=== PATIENT | male | born 1965 | race Caucasian/White ===

== ENCOUNTER 2022-06-28 03:48 | Observation (INO) | payer OTHER ==
[2022-06-28] VITALS (7 sets, daily range): BP systolic 153–199; BP diastolic 72–135
[~2022-06-28] VITALS: Ht 185.4 cm; Wt 143.8 kg
[2022-06-28 04:07] LABS: BASO # 0.1 10*3/uL (0.0-0.1); BASO % 0.5 % (0.0-1.0); EOS # 0.5 10*3/uL (0.0-0.4); EOS % 4.2 % (1.0-4.0); HEMATOCRIT 46.6 % (42.0-52.0); LYMPH # 2.2 10*3/uL (1.3-4.4); LYMPH % 18.4 % (27.0-41.0); MEAN CELL VOLUME 83.2 fl (80.0-94.0); MEAN CORPUSCULAR HGB 27.9 pg (27.0-31.0); MEAN CORPUSCULAR HGB CONC 33.5 g/dl (33.0-37.0); MONO # 0.7 10*3/uL (0.1-1.0); MONO % 6.2 % (3.0-9.0); NEUT # 8.3 10*3/uL (2.3-7.9); PLATELET COUNT AUTOMATED 225 10*3/uL (130-400); RED CELL DISTRI WIDTH 13.4 % (0-14.5); WHITE BLOOD COUNT 11.9 10*3/uL (4.8-10.8)
[2022-06-28 04:18] LABS: ACT PARTIAL THROMBO TIME 26.5 SECONDS (20.0-32.1); INTERNATIONAL NORM RATIO 0.9 (2.0-3.5)
[2022-06-28 04:25] LABS: BUN 18 mg/dl (7-24); CHLORIDE 109 mmol/L (98-107); CREATININE 0.94 mg/dL (0.70-1.30); POTASSIUM 4.4 mmol/L (3.5-5.1); SGOT/AST 14 IU/L (3-35); SGPT/ALT 28 U/L (12-78); SODIUM 139 mmol/L (136-145)
[2022-06-28 04:27] LABS: ALKALINE PHOSPHATASE 69 U/L (45-117); TOTAL PROTEIN 7.2 gm/dL (6.4-8.2)
[2022-06-29 00:42] VITALS: BP 178/98
[2022-06-29 02:45] VITALS: BP 180/78
[2022-06-29 03:39] VITALS: BP 162/87
[2022-06-29 04:08] VITALS: BP 162/87
[2022-06-29 05:42] VITALS: BP 158/87
[2022-06-29 06:42] LABS: BUN 16 mg/dl (7-24); CHLORIDE 104 mmol/L (98-107); MEAN CELL VOLUME 83.5 fl (80.0-94.0); MEAN CORPUSCULAR HGB 27.9 pg (27.0-31.0); MEAN CORPUSCULAR HGB CONC 33.4 g/dl (33.0-37.0); MEAN PLATELET VOLUME 10.8 fl (9.6-12.3); PLATELET COUNT AUTOMATED 250 10*3/uL (130-400); POTASSIUM 4.2 mmol/L (3.5-5.1); RED BLOOD COUNT 5.99 10*6/uL (4.50-5.90); RED CELL DISTRI WIDTH 13.2 % (0-14.5); SGOT/AST 11 IU/L (3-35); SGPT/ALT 28 U/L (12-78); SODIUM 137 mmol/L (136-145); WHITE BLOOD COUNT 14.5 10*3/uL (4.8-10.8)
[2022-06-29 06:45] LABS: ACT PARTIAL THROMBO TIME 27.4 SECONDS (20.0-32.1)
[2022-06-29 06:51] LABS: ALKALINE PHOSPHATASE 69 U/L (45-117); CHOLESTEROL 141 mg/dL (<200); CREATININE 0.79 mg/dL (0.70-1.30); FREE T4 1.13 ng/dl (0.76-1.46); LDL CHOLESTEROL 91 mg/dL (9-159); THYROID STIM HORMONE (HS) 0.491 uIU/ml (0.358-4.75); TOTAL PROTEIN 7.5 gm/dL (6.4-8.2); TRIGLYCERIDES 69 mg/dl (<150)
[2022-06-29 07:05] LABS: MANUAL DIFF REFLEX YES
[2022-06-29 08:21] LABS: PLATELET SUFFICIENCY NORMAL (NORMAL); TOTAL CELLS COUNTED 100 #CELLS
[2022-06-29 08:24] VITALS: BP 179/97
[2022-06-29] MEDS ORDERED: PREDNISONE10 MG PO (14:21)
[2022-06-29] MEDS ORDERED: CETIRIZINE10 MG PO (14:22)
[2022-06-29] MEDS ORDERED: LANTUS SOL100 UNIT/1 SC (14:22)
[2022-06-29] MEDS ORDERED: DOXAZOSIN4 MG PO (14:23)
[2022-06-29] MEDS ORDERED: AZELASTINE HYDRO6 M1 OP (14:23)
[2022-06-29] MEDS ORDERED: IRON325 M1 PO (14:24)
[2022-06-29] MEDS ORDERED: VERAPAMIL HYDRO80 MG PO (14:24)
[2022-06-29] MEDS ORDERED: B12 ACTIVE1000 MCG PO (14:24)
[2022-06-29] MEDS ORDERED: VITAMIN D350 MC2 PO (14:25)
[2022-06-29] MEDS ORDERED: ATORVASTATIN CA10 M1 PO (14:25)
[2022-06-29] MEDS ORDERED: FLUOXETINE HCL40 MG PO (14:27)
[2022-06-29] MEDS ORDERED: PIOGLITAZONE HC30 MG PO (14:30)
[2022-06-29] MEDS ORDERED: GLYBURIDE5 MG PO (14:31)
[2022-06-29] MEDS ORDERED: LOSARTAN-HCTZ1 EAC1 PO (14:31)
[2022-06-29] MEDS ORDERED: TOPROL XL50 M1 PO (14:31)
[2022-06-29] MEDS ORDERED: ATORVASTATIN CA40 M1 PO (14:34)
[2022-06-29] MEDS ORDERED: METOPROLOL SUCC50 M1 PO (14:34)
[2022-06-29] MEDS ORDERED: FLOVENT HFA10.6 GM IH (14:36)
[2022-06-29] MEDS ORDERED: METFORMIN HCL1000 M1 PO (14:36)
== END 2022-06-29 15:33 | disposition home or self-care (01) ==
LOC: ED 03:48 → EDHOLD 07:21 → 5E 06-29 12:42 → EDHOLD 06-29 15:33
PROVIDERS: Emergency Medicine; Internal Medicine; ADMIT Emergency Medicine; ATTEND Emergency Medicine
DX: R07.89 Other chest pain (principal); Z20.822 Contact with and (suspected) exposure to COVID-19; M54.41 Lumbago with sciatica, right side; M54.42 Lumbago with sciatica, left side; I16.0 Hypertensive urgency; R29.898 Other symptoms and signs involving the musculoskeletal system; R26.2 Difficulty in walking, not elsewhere classified; D72.829 Elevated white blood cell count, unspecified; E87.8 Other disorders of electrolyte and fluid balance, not elsewhere classified; E11.65 Type 2 diabetes mellitus with hyperglycemia; I10 Essential (primary) hypertension; E78.5 Hyperlipidemia, unspecified; Z87.891 Personal history of nicotine dependence; Z78.9 Other specified health status; Z79.899 Other long term (current) drug therapy

== ENCOUNTER → 2023-09-20 | Outpatient (CLI) | payer OTHER ==
[~2023-09-20] MED LIST: ATORVASTATIN CA10 M1 PO; ATORVASTATIN CA40 M1 PO; AZELASTINE HYDRO6 M1 OP; B12 ACTIVE1000 MCG PO; CETIRIZINE10 MG PO; DOXAZOSIN4 MG PO; FLOVENT HFA10.6 GM IH; FLUOXETINE HCL40 MG PO; GLYBURIDE5 MG PO; IRON325 M1 PO; LANTUS SOL100 UNIT/1 SC; LOSARTAN-HCTZ1 EAC1 PO; METFORMIN HCL1000 M1 PO; METOPROLOL SUCC50 M1 PO; PIOGLITAZONE HC30 MG PO; PREDNISONE10 MG PO; TOPROL XL50 M1 PO; VERAPAMIL HYDRO80 MG PO; VITAMIN D350 MC2 PO
[2023-09-20 15:15] LABS: ALKALINE PHOSPHATASE 58 U/L (46-116); BUN 19 mg/dl (9-23); CHLORIDE 105 mmol/L (98-107); CHOLESTEROL 137 mg/dL (<200); FREE T4 1.08 ng/dl (0.89-1.76); LDL CHOLESTEROL 81 mg/dL (9-159); POTASSIUM 4.5 mmol/L (3.4-5.1); SGPT/ALT 21 U/L (5-49); TOTAL PROTEIN 7.6 gm/dL (6.0-8.0); TRIGLYCERIDES 119 mg/dl (<150)
[2023-09-20 15:37] LABS: BILIRUBIN Negative (Negative); BLOOD Trace-Lysed (Negative); CLARITY Clear (Clear); COLOR Yellow (Yellow); GLUCOSE 3+ (Negative); KETONE Negative (Negative); LEUKO ESTERASE Negative (Negative); NITRITE Negative (Negative); PH 5.5 (4.5-8.0); SPECIFIC GRAVITY 1.025 (1.001-1.030); UROBILINOGEN 0.2 E.U./dl (0.0-1.0)
[2023-09-20 15:55] LABS: BACTERIA TRACE
== END | disposition home or self-care (01) ==
LOC: LAB 13:53
PROVIDERS: ATTEND Internal Medicine
DX: E11.65 Type 2 diabetes mellitus with hyperglycemia (principal); E04.9 Nontoxic goiter, unspecified; E78.5 Hyperlipidemia, unspecified; E55.9 Vitamin D deficiency, unspecified; R63.5 Abnormal weight gain

== ENCOUNTER → 2024-01-13 | Outpatient (CLI) | payer OTHER ==
[2024-01-13 09:22] LABS: BILIRUBIN Negative (Negative); BLOOD 1+ (Negative); CLARITY Clear (Clear); COLOR Yellow (Yellow); GLUCOSE 3+ (Negative); KETONE Negative (Negative); LEUKO ESTERASE Negative (Negative); NITRITE Negative (Negative); SPECIFIC GRAVITY 1.025 (1.001-1.030); UROBILINOGEN 0.2 E.U./dl (0.0-1.0)
[2024-01-13 09:29] LABS: BACTERIA TRACE; MUCOUS TRACE
[2024-01-13 09:47] LABS: ALKALINE PHOSPHATASE 69 U/L (46-116); BUN 16 mg/dl (9-23); CHLORIDE 105 mmol/L (98-107); CHOLESTEROL 106 mg/dL (<200); LDL CHOLESTEROL 57 mg/dL (9-159); POTASSIUM 3.3 mmol/L (3.4-5.1); SGPT/ALT 18 U/L (5-49); TOTAL PROTEIN 7.5 gm/dL (6.0-8.0); TRIGLYCERIDES 99 mg/dl (<150)
== END | disposition home or self-care (01) ==
LOC: LAB 08:44
PROVIDERS: ATTEND Internal Medicine
DX: E11.9 Type 2 diabetes mellitus without complications (principal); E78.5 Hyperlipidemia, unspecified; E55.9 Vitamin D deficiency, unspecified; E04.9 Nontoxic goiter, unspecified

== ENCOUNTER → 2025-07-23 | Outpatient (CLI) | payer OTHER ==
[~2025-07-23] MED LIST changes: +TRULICITY4.5 MG/0.5 SQ
[2025-07-23 10:28] LABS: BASO # 0.1 10*3/uL (0.0-0.1); BASO % 0.8 % (0.0-1.0); EOS # 0.4 10*3/uL (0.0-0.4); EOS % 3.2 % (1.0-4.0); MEAN CELL VOLUME 90.1 fl (80.0-94.0); MEAN CORPUSCULAR HGB 27.4 pg (27.0-31.0); MEAN PLATELET VOLUME 9.8 fl (9.6-12.3); MONO # 0.6 10*3/uL (0.1-1.0); MONO % 5.5 % (3.0-9.0); NEUT # 8.5 10*3/uL (2.3-7.9); NEUT % 74.0 % (47.0-73.0); NUCLEATED RED BLOOD CELL 0.0 % (0.0-0.0); NUCLEATED RED BLOOD CELL 0.0 10*3/uL (0.0-0.0); PLATELET COUNT AUTOMATED 233 10*3/uL (130-400); RED CELL DISTRI WIDTH 15.1 % (0-14.5)
[2025-07-23 10:40] VITALS: BP 122/90
== END | disposition home or self-care (01) ==
LOC: PHLEB 09:54
PROVIDERS: ATTEND Nurse Practitioner Family
DX: E03.9 Hypothyroidism, unspecified (principal)

== ENCOUNTER → 2025-09-27 | Outpatient (CLI) | payer OTHER | END | disposition home or self-care (01) | LOC: RAD 15:28 | PROVIDERS: ATTEND Nurse Practitioner Family | DX: R05.3 Chronic cough (principal) ==